=== PATIENT | female | born 1975 | race Caucasian/White ===

== ENCOUNTER 2017-07-29 08:59 | Emergency (ER) | payer BC ==
[2017-07-29] MEDS ORDERED: LET GEL TOPICAL 1 EA SYR TP ONE ×2 (09:20→09:23)
--- NOTE | 2017-07-29 09:22 | EDPHY ---
General - History Smoking Status: Never smoked Time Seen by Provider: 07/29/17 09:14 Narrative: CHIEF COMPLAINT: Fall from long board, facial pain, abrasions HISTORY OF PRESENT ILLNESS: Patient presents with spouse at bedside. She complains of facial trauma after falling off of her longboard just prior to arrival. The spouse was with her and witnessed this. She reports that she was going too fast, that she jumped off and tried to run. She fell, landing on her face, hands and right hip on asphalt. She did not lose consciousness. She complains of headache, right- sided neck pain, "i broke my nose," nose bleed, abrasions to the right hand and right hip. Severe pain. Does not radiate. No nausea or vomiting. No neck pain or stiffness. No chest, back or abdominal pain. There is no pain in the lower extremities. No other associated complaints or modifying factors. Reports that her tetanus immunizations up-to-date less than 10 years REVIEW OF SYSTEMS: Ten systems reviewed and are negative unless otherwise noted in the HPI PCP: None SPECIALISTS: [facility] PAST MEDICAL HISTORY: Lupus, OCD PAST SURGICAL HISTORY: Endometrial ablation SOCIAL HISTORY: Nonsmoker. Lives here independently with her spouse FAMILY HISTORY: Noncontributory EXAMINATION General Appearance: Alert, no distress Head: normocephalic. No Batista sign. No raccoon eyes. No depression. There is a frontal hematoma measuring 2 cm across. Eyes: Pupils equal and round, no conjunctival pallor or injection ENT, Mouth: Mucous membranes moist. Uvula is midline. Airway is widely patent. There is swelling of the nasal bridge with dried blood in both nostrils. There is superficial abrasion to the nasal bridge. Mild venous bleeding. No pulsatile bleeding. There is no bleeding in the posterior pharynx. Neck: Normal inspection, supple, no midline tenderness. There is right-sided trapezius tenderness. No crepitus or deformity. Respiratory: Lungs are clear to auscultation Cardiovascular: Regular rate and rhythm. No murmur. Symmetric radial pulses 2 +. Symmetric DP pulses 2+. Gastrointestinal: Abdomen is soft and nontender Back: non-tender, no bony abnormalities. No crepitus, step-off or deformity. Neurological: GCS 15. A&O, nonfocal, strength is symmetric in all 4 limbs. Strength in the interossei is symmetric. Skin: Warm and dry. No punctures. There are small areas of abrasion over the right anterior superior iliac spine measuring 2 cm, right palm, thenar eminence and proximal wrist measuring 3 cm total. No debris. Extremities: Tenderness of the right wrist including the anatomic snuffbox. There is no tenderness of the fingers, elbows, shoulders, hips, knees or ankles bilaterally. Range of motion of the extremities symmetric without deficit. Psychiatric: Mood and affect normal DIFFERENTIAL DIAGNOSES: Including but not limited to intracranial hemorrhage, concussion, nasal fracture , dislocation, scaphoid injury, sprain, strain, abrasions MDM: 9:20 a.m. Fall from long board with facial trauma and abrasions to the right hip, right hand and nasal bridge. She is awake alert no acute distress. She has ambulated with no pain lower extremities. There is pain in the right wrist including snuffbox, thus I have ordered an x-ray. I have ordered CT scans of the head cervical spine. Topical let will be applied to the abrasions for debridement. 9:59 a.m. Patient re-evaluated. She has received her dose of IV pain medication. She is now complaining of right mid forearm pain that she did not notice before. This area is not visualized on the plain film, thus I will obtain a dedicated forearm series. 10:15 a.m. Plain films of the right wrist and forearm reveal no acute osseous findings. CT scans are pending. 11:00 a.m. Notified by radiologist Dr. Dietz. No acute findings on the CT scans of the head or cervical spine. Plain films negative per radiology. Proceed with irrigation and repair of nasal laceration. 11:50 a.m. Nasal laceration has been repaired without difficulty. This was a simple repair with no obvious communication with the nasal fracture. She will be placed on prophylactic Keflex due to the proximity the laceration to the fracture. We discussed pain medication, anti-inflammatories, ice, rest and head bed elevation. We discussed follow up with ENT for outpatient follow-up of the nasal fracture. We discussed orthopedic follow-up for the right wrist pain, for which she has been placed in a thumb spica splint to protect for occult scaphoid injury. She is ambulatory with no difficulty. She is awake and alert and stable for discharge home. PROCEDURE: Laceration repair Consent: Verbal Location: Nasal bridge Length of repair: 1 cm Complexity: Simple Layer involvement: Single Anesthesia: Local. 0.5% Marcaine, 5 mL Irrigation: Extensive Debridement: None Procedure description: Following good anesthesia, the wound was copiously irrigated. Wound bed was explored with a sterile glove, and there is no foreign body noted. No exposure of the underlying nasal bone. Wound borders were approximated well with good hemostasis. Tolerated well without complication. Suture/Staple material: 6-0 Ethilon, 2 simple interrupted sutures Wound care: Routine as discussed Suture/Staple removal: 5-7 Days SUPERVISION: This patient was independently evaluated without direct involvement of or examination by the attending physician. (Lyndon Graff) Medical Decision Making: I did not see this patient while she was in the emergency department. However her care was discussed with the PA while the patient is in the department. I agree with treatment plan and management (Suresh Willis) - Objective Vital Signs: Initial Vital Signs Temperature (C) 98.1 F 07/29/17 09:03 Heart Rate 82 07/29/17 09:03 Respiratory Rate 22 H 07/29/17 09:03 Blood Pressure 144/112 H 07/29/17 09:03 O2 Sat (%) 100 07/29/17 09:03 O2 Delivery Mode Room Air Allergies/Adverse Reactions: No Known Allergies Allergy (Verified 07/29/17 09:02) Home Medications: Medication Instructions Recorded Adderall 10 mg Tablet 07/29/17 Amoxicillin/Clavulanate Pot 875 mg PO BID #14 tab 07/29/17 [Augmentin 875 MG TAB (*)] Escitalopram Oxalate 07/29/17 Ondansetron Odt [Zofran Odt 4 mg 4 mg PO Q6 PRN #12 tab 07/29/17 (*)] oxyCODONE HCL/ACETAMINOPHEN 1 each PO Q4-6PRN PRN #17 tablet 07/29/17 [Percocet 5-325 mg Tablet] Medications Given: Discontinued Medications Sodium Chloride (Ns) 1,000 mls @ 0 mls/hr IV ONCE ONE PRN Reason: Wide Open Stop: 07/29/17 09:40 Last Admin: 07/29/17 09:49 Dose: 1,000 mls Morphine Sulfate (Morphine) 6 mg IVP EDNOW ONE Stop: 07/29/17 09:37 Last Admin: 07/29/17 09:52 Dose: 6 mg Morphine Sulfate (Morphine) 4 mg IVP EDNOW ONE Stop: 07/29/17 11:24 Last Admin: 07/29/17 11:26 Dose: 4 mg Ondansetron HCl (Zofran) 4 mg IVP EDNOW ONE Stop: 07/29/17 09:37 Last Admin: 07/29/17 09:51 Dose: 4 mg Tetracaine/Epinephrine/Lidocaine (Let Gel Topical) 2 ea TP EDNOW ONE Stop: 07/29/17 09:24 Last Admin: 07/29/17 09:50 Dose: 2 ea Departure - Departure Disposition: Home, Routine, Self-Care Clinical Impression: Abrasions of multiple sites Closed head injury Qualifiers: Encounter type: initial encounter Qualified Code(s): S09.90XA - Unspecified injury of head, initial encounter Nasal bone fracture Qualifiers: Encounter type: initial encounter Fracture type: closed Qualified Code(s): S02.2XXA - Fracture of nasal bones, initial encounter for closed fracture Sprain of wrist, right Qualifiers: Encounter type: initial encounter Qualified Code(s): S63.501A - Unspecified sprain of right wrist, initial encounter Nasal laceration Qualifiers: Encounter type: initial encounter Qualified Code(s): S01.21XA - Laceration without foreign body of nose, initial encounter Condition: Good Instructions: Nasal Fracture (ED), Laceration (DC), Abrasion (ED), Wrist Sprain (ED), Facial Laceration (ED) Additional Instructions: 1. Ice to affected areas as needed often 2. Augmentin prophylaxis for the scan laceration to completion for 7 days 3. Ibuprofen [id number], 400-600 mg every 6-8 hours as needed 4. Prescription Percocet as prescribed as needed for pain 5. Contact on-call Ear Nose and Throat physician for definitive care of the nasal fracture 6. Contact the on-call orthopedist for definitive care of the right wrist sprain 7. Keep your wrist splint in place at all times until seen by the orthopedist or until completely pain-free 8. ED precautions as discussed 9. Return to emergency department in 5-7 days for suture removal. You do not need an appointment Referrals: Norm Garcia MD [Medical Doctor] - As per Instructions Colby Pablo MD [Medical Doctor] - As per Instructions Prescriptions: Amoxicillin/Clavulanate Pot [Augmentin 875 MG TAB (*)] 875 mg PO BID #14 tab Ondansetron Odt [Zofran Odt 4 mg (*)] 4 mg PO Q6 PRN #12 tab PRN Reason: Nausea/Vomiting, Use 1st oxyCODONE HCL/ACETAMINOPHEN [Percocet 5-325 mg Tablet] 1 each PO Q4-6PRN PRN # 17 tablet PRN Reason: Pain, Breakthrough
[2017-07-29] MEDS ORDERED: ONDANSETRON 4 MG/2 ML VIAL IVP ONE (09:36)
[2017-07-29] MEDS ORDERED: NS 1,000 ML IV ONE (09:39)
[2017-07-29 12:32] VITALS: BP 126/82
== END 2017-07-29 12:32 | disposition home or self-care (01) ==
PROC: 09QKXZZ Repair Nasal Mucosa and Soft Tissue, External Approach (ICD-10-PCS; principal; 2017-07-29)
DX: S02.2XXA Fracture of nasal bones, initial encounter for closed fracture (principal); S01.21XA Laceration without foreign body of nose, initial encounter; S63.501A Unspecified sprain of right wrist, initial encounter; S09.90XA Unspecified injury of head, initial encounter; T14.8XXA Other injury of unspecified body region, initial encounter; E86.9 Volume depletion, unspecified; V00.131A Fall from skateboard, initial encounter
CPT/HCPCS: 96374; J2270; J2405

== ENCOUNTER 2017-08-03 14:21 | Emergency (ER) | payer BC ==
[2017-08-03] MEDS ORDERED: BACITRACIN OINTMENT 1 PACKET TP ONE (15:00)
--- NOTE | 2017-08-03 15:00 | EDPHY ---
H & P Stated Complaint: NEEDS MORE PAIN MEDS, WANTS WOUNDS CLEANED AND DRESSED Time Seen by Provider: 08/03/17 14:47 HPI/ROS: CHIEF COMPLAINT: Abrasions, suture removal HISTORY OF PRESENT ILLNESS: Patient is a 42-year-old female who is here for suture removal and was requesting a refill of her narcotics. She also has multiple abrasions that she would like to have dressed with antibiotic ointment. She was seen here 5 days ago after skateboard accident. She has a small nasal bone fracture and laceration to the bridge of her nose. She has been on antibiotics. She was prescribed 17 Percocet and took them all and is asking for more. She also has appointment to follow up with Dr. Pablo in 2 days. No new injuries. REVIEW OF SYSTEMS: Constitutional: denies: chills, fever, recent illness, recent injury EENTM: See HPI Respiratory: denies: cough, shortness of breath Cardiac: denies: chest pain, irregular heart rate, lightheadedness, palpitations Gastrointestinal/Abdominal: denies: abdominal pain, diarrhea, nausea, vomiting, blood streaked stools Genitourinary: denies: dysuria, frequency, hematuria, pain Musculoskeletal: denies: joint pain, muscle pain Skin: See HPI Neurological: denies: headache, numbness, paresthesia, tingling, dizziness, weakness Hematologic/Lymphatic: denies: blood clots, easy bleeding, easy bruising Immunologic/allergic: denies: HIV/AIDS, transplant EXAM: GENERAL: Well-appearing, well-nourished and in no acute distress. HEAD: Atraumatic, normocephalic. EYES: Pupils equal round and reactive to light, extraocular movements intact, sclera anicteric, conjunctiva are normal. ENT: TMs normal, nares patent, oropharynx clear without exudates. Moist mucous membranes. NECK: Normal range of motion, supple without lymphadenopathy or JVD. LUNGS: Breath sounds clear to auscultation bilaterally and equal. No wheezes rales or rhonchi. HEART: Regular rate and rhythm without murmurs, rubs or gallops. ABDOMEN: Soft, nontender, normoactive bowel sounds. No guarding, no rebound. No masses appreciated. BACK: No CVA tenderness, no spinal tenderness, step-offs or deformities EXTREMITIES: Normal range of motion, no pitting or edema. No clubbing or cyanosis. NEUROLOGICAL: Cranial nerves II through XII grossly intact. Normal speech, normal gait. 5/5 strength, normal movement in all extremities, normal sensation PSYCH: Normal mood, normal affect. SKIN: Abrasions to the palms of both hands as well as right hip, well-healing laceration to the bridge of right nose with [address] Source: Patient Exam Limitations: No limitations - Personal History LMP (Females 10-55): Unknown Current Tetanus Diphtheria and Acellular Pertussis (TDAP): Yes Tetanus Vaccine Date: < 10 years - Medical/Surgical History Hx Asthma: No Hx Chronic Respiratory Disease: No Hx Diabetes: No Hx Cardiac Disease: No Hx Renal Disease: No Hx Cirrhosis: No Hx Alcoholism: No Hx HIV/AIDS: No Hx Splenectomy or Spleen Trauma: No Other PMH: Lupus - Family History Significant Family History: No pertinent family hx - Social History Smoking Status: Never smoked Alcohol Use: Sober Drug Use: None Constitutional: Initial Vital Signs Temperature (C) 36.9 C 08/03/17 14:22 Heart Rate 108 H 08/03/17 14:22 Respiratory Rate 16 08/03/17 14:22 Blood Pressure 137/93 H 08/03/17 14:22 O2 Sat (%) 93 08/03/17 14:22 O2 Delivery Mode Room Air Allergies/Adverse Reactions: No Known Allergies Allergy (Verified 08/03/17 14:25) Home Medications: Medication Instructions Recorded Adderall 10 mg Tablet 07/29/17 Amoxicillin/Clavulanate Pot 875 mg PO BID #14 tab 07/29/17 [Augmentin 875 MG TAB (*)] Escitalopram Oxalate 07/29/17 Ketorolac Tromethamine 10 mg PO Q6H PRN #16 tab 08/03/17 Medical Decision Making ED Course/Re-evaluation: Patient's wounds were cleaned and dressed with antibiotic ointment. Her sutures were removed. We discussed are no narcotic policy. I will not refill her Percocet. She is somewhat disappointed because this is why she checked in specifically. I will give her prescription for Toradol and advised her not to use ibuprofen as well. Differential Diagnosis: Partial list of the Differential diagnosis considered include but were not limited to; medication refill, abrasion, wound care and although unlikely based on the history and physical exam, I also considered the wound infection, foreign body. I discussed these differential diagnoses and the plan with the patient as well as the usual and expected course. The patient understands that the diagnosis is provisional and that in medicine we are not always correct and that further workup is often warranted. Usual and customary warnings were given. All of the patient's questions were answered. The patient was instructed to return to the emergency department should the symptoms at all worsen or return, otherwise to followup with the physician as we discussed. - Data Points Medications Given: Discontinued Medications Ketorolac Tromethamine (Toradol) 30 mg IM EDNOW ONE Stop: 08/03/17 15:02 Last Admin: 08/03/17 15:34 Dose: 30 mg Departure - Departure Disposition: Home, Routine, Self-Care Clinical Impression: Abrasion, Encounter for removal of sutures Condition: Good Instructions: Abrasion (ED), Stitches Removal (ED) Referrals: NONE *PRIMARY CARE P,. [Primary Care Provider] - As per Instructions Colby Pablo MD [Medical Doctor] - As per Instructions Prescriptions: Ketorolac Tromethamine 10 mg PO Q6H PRN #16 tab PRN Reason: Pain/inflammation
[2017-08-03] MEDS ORDERED: KETOROLAC 30 MG/1 ML SDV IM ONE (15:01)
[2017-08-03 15:44] VITALS: BP 123/78
== END 2017-08-03 15:45 | disposition home or self-care (01) ==
DX: Z48.02 Encounter for removal of sutures (principal); S60.511D Abrasion of right hand, subsequent encounter; S60.512D Abrasion of left hand, subsequent encounter; S70.211D Abrasion, right hip, subsequent encounter; X58.XXXD Exposure to other specified factors, subsequent encounter
CPT/HCPCS: J1885